=== PATIENT | female | born 1945 | race Caucasian/White ===

== ENCOUNTER 2016-09-11 13:11 | Observation (INO) | payer MEDICARE, OTHER ==
[2016-09-11] MEDS ORDERED: cloNIDine HCL 0.1 MG TABLET PO ONE ×2 (13:35→14:57)
--- NOTE | 2016-09-11 13:44 | CT REPORT ---
HISTORY: Stroke, spotty vision and left-sided deficits COMPARISON: None. TECHNIQUE: Axial non-contrast images obtained from skull vertex through foramen magnum. Dose reduction technique was utilized. FINDINGS: There is mild diffuse atrophy. Ventricular size is normal. Mild patchy chronic white matter changes n oted. There is no subdural or epidural collection, midline shift or mass effect. No evidence for acut e infarction. Visualized paranasal sinuses are clear. Skull is intact. IMPRESSION: Mild patchy chronic white matter change. No evidence for acute hemorrhage or infarction. Report called to Dr. Randhawa. Final Electronic Signature: This report was electronically signed by Álvaro North MD on 09/11/2016 1 :42 PM. loretta /
[2016-09-11 13:45] LABS: BASOPHILS 0.5 % (0.0-2.0); EOSINOPHILS 6.2 % (0.0-6.0); EOSINOPHILS# 0.3 X 10^3uL (0.0-0.4); HEMATOCRIT 42.2 % (36.0-48.0); HEMOGLOBIN 14.5 g/dL (12.0-16.0); LYMPHOCYTES 36.3 % (20.0-40.0); MEAN CORPUS. HGB CONCENTRATION 34.4 g/dL (32.0-36.0); MEAN PLATELET VOLUME 7.7 fL (7.4-10.4); MONOCYTES 6.8 % (2.0-10.0); MONOCYTES# 0.4 X 10^3uL (0.2-1.0); NEUTROPHILS 50.2 % (54.0-75.0); NEUTROPHILS# 2.8 X 10^3uL (2.6-6.7); PLATELET COUNT 271 X 10^3uL (130-440); RED BLOOD COUNT 4.85 X 10^6uL (4.20-6.10); RED CELL DISTRIBUTION WIDTH 12.5 % (11.5-14.5); WHITE BLOOD COUNT 5.5 X 10^3uL (3.9-10.7)
[2016-09-11 13:55] LABS: BLOOD UREA NITROGEN 17 mg/dL (7-17); CALCIUM 9.3 mg/dL (8.4-10.2); CHLORIDE 106 mmol/L (98-107); EST GLOMERULAR FILTRATION RATE > 60 mL/min; GLUCOSE 98 mg/dL (70-100); POTASSIUM 3.6 mmol/L (3.5-5.1); SODIUM 142 mmol/L (137-145)
[2016-09-11 14:07] LABS: TROPONIN I < 0.012 ng/mL (0.00-0.034)
--- NOTE | 2016-09-11 14:39 | MRI REPORT ---
HISTORY: Evaluate for stroke, left facial numbness COMPARISON: CT scan from earlier today TECHNIQUE: Multiplanar multi sequential imaging of the brain obtained without IV gadolinium. FINDINGS: Diffusion imaging shows no evidence of acute infarction. As noted on the head CT, there is mild diffu se atrophy, and mild subcortical and periventricular chronic white matter change. No hydrocephalus. N o subdural or epidural collection. No midline shift or mass effect. The major intracranial vessels, a nd dural venous sinuses appear patent. Paranasal sinuses and mastoid air cells are clear. Midline str uctures are normal. IMPRESSION: No evidence for acute infarction. Mild diffuse atrophy and mild patchy subcortical and periventricular white matter change. Final Electronic Signature: This report was electronically signed by Álvaro North MD on 09/11/2016 2 :37 PM. loretta /
[2016-09-11] MEDS ORDERED: MAG-AL PLUS XS SUSP 30 ML UDC PO PRN (15:17)
[2016-09-11] MEDS ORDERED: ACETAMINOPHEN 325 MG TABLET PO PRN (15:17)
[2016-09-11] MEDS ORDERED: HOME MEDICATION LIST NEEDED 1 EA EACH MC ONE (15:17)
[2016-09-11 15:19] LABS: URINE MUCUS NONE SEEN (Up to 25%); URINE RBC NONE SEEN (0-5/hpf); URINE WBC NONE SEEN (0-4/hpf)
[2016-09-11] MEDS ORDERED: ONDANSETRON ODT 4 MG TAB.RAPDIS PO PRN (15:20)
[2016-09-11 15:27] LABS: URINE APPEARANCE CLEAR; URINE COLOR YELLOW
[2016-09-11 15:28] LABS: URINE BACTERIA <10 ORGANISMS/hpf (<10/hpf); URINE BILIRUBIN NEGATIVE (NEGATIVE); URINE BLOOD NEGATIVE (NEGATIVE); URINE GLUCOSE NORMAL (NEGATIVE); URINE KETONE NEGATIVE (NEGATIVE); URINE LEUKOCYTE ESTERASE TRACE (NEGATIVE); URINE NITRITE NEGATIVE (NEGATIVE); URINE PROTEIN NEGATIVE (NEG - TRACE); URINE SPECIFIC GRAVITY 1.015 (0.001-1.035); URINE SQUAMOUS EPITHELIAL CELL 0-5/hpf (<= 15/hpf); URINE UROBILINOGEN 0.2mg/dL (Normal) (NEG-1mg/dL)
--- NOTE | 2016-09-11 15:45 | ER PHYSICIAN DOCUMENTATION ---
Physician Documentation [facility] Name:Katerina Aranda Age:71 yrs Sex:Female :1945 Arrival Date:09/11/2016 Time:13:11 BedTrauma-C Private MD: Gautam Pelaez Disposition: 09/11 15:14 Critical Care: not applicable. cd 15:20 Chart complete. cd Disposition: 09/11/16 15:16 Admit ordered for Zeenat Woo. Preliminary diagnosis are Transient Ischemic Attack (TIA), Hypertensive Emergency - / Urgency with paroxysmal Paresthesias. - Bed requested for Medical/Surgical. - Condition is Good. - Problem is new. - Symptoms are resolved. 23 HR OBS Yes HPI: 13:15 This 71 yrs old Female presents to ER via Private Vehicle with complaints of cd Episodes of Tingling down the left side of her body. 13:15 The patient's problem is reported as paresthesias, in left upper extremity, in left cd lower extremity. Onset: The symptom(s)/episode began/occurred acutely, at 11:30. Duration: The episodes are intermittent, The patient has had two episodes FRONT COUNTER ATTENDANT, each lasting 2 minutes. She denies any symptoms now other than a mild headache. She reports she has no history of CVA's, TIA's, Atrial Fib, Carotid disease, Cancer or ICH in the past. She does report a history of HTN and states that she is on Amlodipine and Lisinopril. She reports she has not taken her meds this morning. . Context: the episode(s) was witnessed, by family, , symptoms became apparent at 11:30. occurred at home, occurred while the patient was at rest, Possible contributing factors include: History of HTN, reports she did not take her meds this morning. Associated signs and symptoms: Pertinent positives: blurred vision, headache, tingling, Pertinent negatives: abdominal pain, chest pain, confusion, diaphoresis, dizziness, lightheadedness, numbness, palpitations, seizure, shortness of breath, vomiting, weakness. Severity of symptoms: At their worst the symptoms were mild in the emergency department the symptoms have resolved. Patient's baseline: Neuro: alert and fully oriented, Motor: no deficits, Ambulation: walks without assistance, Speech: normal. The patient has not experienced similar symptoms in the past. Historical: - Allergies: No known drug Allergies; - Home Meds: 1. amlodipine oral 2. lisinopril Oral - PMHx: Hypertension; - PSHx: Appendectomy; Hysterectomy; - Tetanus: > 10 years will f/u with PCP. - Ebola Screening: : Patient denies exposure to infectious person. Patient denies travel to an Ebola-affected area in the 21 days before illness onset. . - Social history: Smoking status: Patient states was never smoker of tobacco. Patient/guardian denies using alcohol, marijuana. ROS: 13:20 ENT: Negative for injury, pain, epistaxis and discharge. cd Neck: Negative for injury, pain, stiffness and swelling. Cardiovascular: Negative for chest pain, palpitations, edema and pleuritic pain. Respiratory: Negative for shortness of breath, dyspnea on exertion, cough, sputum production, wheezing, hemoptysis and pleuritic chest pain. Abdomen/GI: Negative for abdominal pain, nausea, vomiting, diarrhea, constipation, distension, melena, hematochezia and hematemesis. Back: Negative for injury, pain or muscle spasms. : Negative for injury, bleeding, discharge, dysuria, frequency, urgency and swelling. MS/Extremity: Negative for injury, deformity, edema, calf tenderness, pain or coldness. 13:20 Skin: Negative for injury, rash, itching and discoloration. cd 13:20 Constitutional: Negative for chills, fever, poor PO intake. 13:20 Eyes: Positive for visual disturbance, which is now gone. 13:20 Neuro: Positive for tingling, of the left arm and left leg, Negative for altered mental status, dizziness, loss of consciousness, numbness, seizure activity, speech changes, syncope, weakness. 13:20 All other systems are negative. Exam: Head/Face: Normocephalic, atraumatic. Eyes: Pupils equal round and reactive to light, extra-ocular motions intact. Lids and lashes normal. Conjunctiva and sclera are non-icteric and not injected. Cornea within normal limits. Periorbital areas with no swelling, redness, or edema. ENT: Nares patent. No nasal discharge, no septal abnormalities noted. Tympanic membranes are normal and external auditory canals are clear. Oropharynx with no redness, swelling, or masses, exudates, or evidence of obstruction, uvula midline. Mucous membranes moist. Neck: Trachea midline, no thyromegaly or masses palpated, and no cervical lymphadenopathy. Supple, full range of motion without nuchal rigidity, or vertebral point tenderness. No Meningismus. Chest/axilla: Normal chest wall appearance and motion. Nontender with no deformity. No lesions are appreciated. Cardiovascular: Regular rate and rhythm with a normal S1 and S2. No gallops, murmurs, or rubs. Normal PMI, no JVD. No pulse deficits. Respiratory: Lungs have equal breath sounds bilaterally, clear to auscultation and percussion. No rales, rhonchi or wheezes noted. No increased work of breathing, no retractions or nasal flaring. Abdomen/GI: Soft, non-tender, with normal bowel sounds. No distension or tympany. No guarding or rebound. No evidence of tenderness throughout. Back: No spinal tenderness. No costovertebral tenderness. Full range of motion. Skin: Warm, dry with normal turgor. Normal color with no rashes, no lesions, and no evidence of cellulitis. MS/ Extremity: Pulses equal, no cyanosis. Neurovascular intact. Full, normal range of motion. 13:45 Neuro: Awake and alert, GCS 15, oriented to person, place, time, and situation. cd Cranial nerves II-XII grossly intact. Motor strength 5/5 in all extremities. Sensory grossly intact. Cerebellar exam normal. Normal gait. 13:45 Constitutional: The patient appears alert, awake, non-diaphoretic, non-toxic, well developed, well nourished, anxious. 13:45 Neuro: Orientation: is normal, to person, place & time. Mentation: is normal, Memory: is normal, Cranial nerves: CN II- XII are normal as tested, Cerebellar function: is grossly normal, Motor: moves all fours, Sensation: is normal, Gait: is steady. Vital Signs: 13:26 BP 194 / 96; Pulse 74; Resp 18; Temp 98.1; Pulse Ox 94% on R/A; Pain 2/10; st 13:32 BP 196 / 88 (auto/); st 13:36 Pulse 74 MON; Resp 17; Pulse Ox 93% ; st 13:51 Pulse 78 MON; Resp 23; st 14:40 BP 202 / 88 (auto/); st 15:00 BP 180 / 101 (auto/); st 15:01 Pulse Ox 94% ; st 15:10 BP 187 / 98 (auto/); st 15:11 Pulse 80; Pulse Ox 94% ; st 15:30 BP 181 / 90 (auto/); st 15:31 Pulse 70; Pulse Ox 95% ; st NIH Stroke Scale Scores: 13:41 NIHSS Score: 0 st [place] Coma Score: 13:45 Eye Response: spontaneous(4). Verbal Response: oriented(5). Motor Response: obeys cd commands(6). Total: 15. MDM: 13:12 ECG:. cd 13:20 Data interpreted: bus driver/monitor: rate is 70 beats/min, rhythm is normal sinus rhythm, cd regular, with no ectopy, Interpretation: normal rate, normal rhythm, Pulse oximetry: on room air is 95 %. Interpretation: normal. 13:28 Patient medically screened. cd 13:45 Differential diagnosis: CVA, TIA, metabolic disorder, Hypertensive Emergency / Urgency. cd 15:15 Neurological re-evaluation: normal neurological exam including cranial nerves, cd orientation, mentation, motor and sensory exam, cerebellar testing, GCS normal, and normal gait. 15:20 Counseling: I had a detailed discussion with the patient and/or guardian regarding: the cd historical points, exam findings, and any diagnostic results supporting the discharge/admit diagnosis, lab results, radiology results, the need for further work-up and treatment in the hospital, risk of leaving the Emergency Department. Physician consultation: Zeenat Woo MD was called at 15:00, was contacted at 15:05, regarding admission, to telemetry, consult, patient's condition, need to come to ED to see patient, need to evaluate the patient as soon as possible, and will see patient in inpatient room, shortly, later today. Admission orders: after a detailed discussion of the patient's condition and case, the admit orders are written by me. 15:30 Data reviewed: vital signs, nurses notes, old medical records, lab test result(s), cd radiologic studies, CT scan, MRI, and as a result, I will admit patient, initiate a consult, from a Internal Medicine Physician, Dr. Zeenat Woo. 09/11 13:51 Order name: CBC AUTO DIF, MDIF/RMOR IF IND; Complete Time: 15:08 EDMS 09/11 15:07 Interpretation: Normal. cd 09/11 13:58 Order name: PROTIME/INR; Complete Time: 15:08 EDMS 09/11 15:07 Interpretation: Normal. cd 09/11 14:08 Order name: BASIC METABOLIC PANEL; Complete Time: 15:08 EDMS 09/11 15:07 Interpretation: Normal. cd 09/11 14:08 Order name: TROPONIN I; Complete Time: 15:08 EDMS 09/11 15:07 Interpretation: Normal. cd 09/11 15:29 Order name: UA W/ MICRO -CULTURE IF IND; Complete Time: 16:07 EDMS 09/11 16:06 Interpretation: Normal Except: URINE LEUKOCYTE ESTERASE TRACE. 09/11 19:08 Order name: TROPONIN I; Complete Time: 23:22 EDMS 09/11 23:22 Interpretation: Normal. cd 09/12 06:20 Order name: BASIC METABOLIC PANEL EDMS 09/12 07:45 Order name: URINE CULTURE EDMS 09/12 10:07 Order name: UA W/ MICRO -CULTURE IF IND EDMS 09/13 09:27 Order name: URINE CULTURE EDMS 09/11 13:46 Order name: CAT SCAN; HEAD W/O CON [id number]; Complete Time: 15:08 EDMS 09/11 16:07 Interpretation: Normal Except: Radiologist Report Reviewed during the patient's visit. 09/11 14:40 Order name: BRAIN W/O CONTRAST [id number]; Complete Time: 15:08 EDMS 09/11 15:08 Interpretation: Normal Except: Reviewed Radiologist's Reading at time of patient's cd visit. 09/11 13:29 Order name: 12-lead EKG; Complete Time: 13:32 cd 09/11 13:29 Order name: Continuous Cardiac Monitoring; Complete Time: 13:32 cd 09/11 13:29 Order name: I & O; Complete Time: 13:32 cd 09/11 13:29 Order name: NIH Stroke Scale; Complete Time: 13:41 cd 09/11 13:29 Order name: NPO; Complete Time: 13:32 cd 09/11 13:29 Order name: Pulse Ox Continuous; Complete Time: 13:32 cd 09/11 13:29 Order name: Elevate HOB 30 degrees; Complete Time: 13:32 cd 09/11 13:29 Order name: Iv Saline Lock; Complete Time: 13:32 cd EC:12 Rate is 69 beats/min. Rhythm is regular. VA interval is normal. QRS interval is normal. cd QT interval is normal. No Q waves. T waves are Normal. No ST changes noted. Clinical impression: Normal ECG and No evidence of ischemia. Interpreted by me. Dispensed Medications: 13:30 Drug: cloNIDine 0.1 mg; Route: PO; st 15:43 Follow up: Response: BP improving st 14:45 Drug: cloNIDine 0.1 mg; Route: PO; st 15:43 Follow up: Response: BP improving. st Point of Care Testing: Urine Dip: 15:13 pH: 7.0; ; Specific [place]: 1.015; Ketones: Negative; Glucose: Negative; Protein: st Negative; Leukocytes: Trace; Nitrite: Negative ; Blood: Negative; Bilirubin: Negative ; Urobilinogen: Normal NIH Stroke Scale - NIH Stroke Score Date: 09/11/2016 Time: 13:41 Total Score = 0 1a. Level of Consciousness (LOC) - 0(Alert) 1b. Level of Consciousness (LOC) (Year & Age) - 0(Both) 1c. LOC Commands (Open & Closes Eyes/Home Care Associate) - 0(Both) 2. Best Gaze (Lateral Gaze Paresis) - 0(Normal) 3. Visual Field Loss - 0(No visual loss) 4. Facial Palsy - 0(Normal) 5a. Left Arm: Motor (10-second hold) - 0(No drift) 5b. Right Arm: Motor (10-second hold) - 0(No drift) 6a. Left Leg: Motor (5-second hold ? always test supine) - 0(No drift) 6b. Right Leg: Motor (5-second hold ? always test supine) - 0(No drift) 7. Limb Ataxia (finger/nose & heel/rice ? test with eyes open) - 0(Absent) 8. Sensory Loss (pinprick arms/legs/face) - 0(Normal) 9. Best Language: Aphasia (description/naming/reading) - 0(No aphasia) 10. Dysarthria (speech clarity ? read or repeat words) - 0(Normal) 11. Extinction and Inattention (visual/tactile/auditory/spatial/personal) - 0(No abnormality) Initials: st Signatures: Twombly, Summer, RN RN st Tomas, Gautam, MD MD cd
--- NOTE | 2016-09-11 15:45 | ER NURSING DOCUMENTATION ---
Nurse's Notes [facility] Name:Katerina Aranda Age:71 yrs Sex:Female :1945 Arrival Date:09/11/2016 Time:13:11 BedTrauma-C Private MD: Diagnosis:Transient Ischemic Attack (TIA);Hypertensive Emergency-/ Urgency with paroxysmal Paresthesias Presentation: 09/11 13:18 Presenting complaint: Patient states: pt has had two episodes of tingling down the st whole left side with some vision changes. the first one was about 45 min ago pt states they both lasted about 1 min. pt only symptom now is a mild headache. 13:18 Acuity: JE 2 st 13:20 Transition of care: patient was not received from another setting of care. st 13:20 Method Of Arrival: Private Vehicle st Triage Assessment: 13:24 General: Appears in no apparent distress, Behavior is cooperative. Pain: Complains of st pain in headache Pain currently is 2 out of 10 on a pain scale. EENT: Reports pt states she did have a blind spot when she was having symptoms but that has resolved. . Neuro: Level of Consciousness is awake, alert, Oriented to person, place, time, event, [employer] are equal bilaterally Moves all extremities. Speech is normal, Facial symmetry appears normal. Cardiovascular: Capillary refill < 3 seconds Heart tones present Pulses are palpable in right radial artery and left radial artery Rhythm is sinus rhythm. Respiratory: No deficits noted. GI: Reports pt states she has some nausea when she had symptoms but that has resolved. Musculoskeletal:. Historical: - Allergies: No known drug Allergies; - Home Meds: 1. amlodipine oral 2. lisinopril Oral - PMHx: Hypertension; - PSHx: Appendectomy; Hysterectomy; - Tetanus: > 10 years will f/u with PCP. - Ebola Screening: : Patient denies exposure to infectious person. Patient denies travel to an Ebola-affected area in the 21 days before illness onset. . - Social history: Smoking status: Patient states was never smoker of tobacco. Patient/guardian denies using alcohol, marijuana. Screenin:27 Infectious Disease Risk None. Abuse screen: Denies threats or abuse. Denies injuries st from another. Abuse screen: pt feels safe at home. Nutritional screening: No deficits noted. Assessment: 14:45 General: pt remains symptom free.. st Vital Signs: 13:26 BP 194 / 96; Pulse 74; Resp 18; Temp 98.1; Pulse Ox 94% on R/A; Pain 2/10; st 13:32 BP 196 / 88 (auto/); st 13:36 Pulse 74 MON; Resp 17; Pulse Ox 93% ; st 13:51 Pulse 78 MON; Resp 23; st 14:40 BP 202 / 88 (auto/); st 15:00 BP 180 / 101 (auto/); st 15:01 Pulse Ox 94% ; st 15:10 BP 187 / 98 (auto/); st 15:11 Pulse 80; Pulse Ox 94% ; st 15:30 BP 181 / 90 (auto/); st 15:31 Pulse 70; Pulse Ox 95% ; st [place] Coma Score: 13:45 Eye Response: spontaneous(4). Verbal Response: oriented(5). Motor Response: obeys cd commands(6). Total: 15. NIH Stroke Scale Scores: 13:41 NIHSS Score: 0 st ED Course: 13:12 Patient arrived in ED. lr3 13:12 EKG done per protocol. Performed by ED Staff. Shown to ED physician. st 13:18 Tavia Garcia, RN is Primary Nurse. st 13:[address] ms 13:[address] 13:21 Inserted peripheral IV: 20 gauge in right antecubital area and blood collected. lp 13:27 Gautam Tomsa MD is Attending Physician. cd 13:27 Valuables Remains with patient Patient has correct armband on for positive st identification. Placed in gown. Bed in low position. Call light in reach. software tools developer on. Pulse ox on. NIBP on. 13:48 Patient moved to MRI. dnn 15:14 Zeenat Woo MD is Admitting Physician. cd Administered Medications: 13:30 Drug: cloNIDine 0.1 mg; Route: PO; st 15:43 Follow up: Response: BP improving st 14:45 Drug: cloNIDine 0.1 mg; Route: PO; st 15:43 Follow up: Response: BP improving. st Point of Care Testing: Urine Dip: 15:13 pH: 7.0; ; Specific [place]: 1.015; Ketones: Negative; Glucose: Negative; Protein: st Negative; Leukocytes: Trace; Nitrite: Negative ; Blood: Negative; Bilirubin: Negative ; Urobilinogen: Normal Outcome: 15:16 Decision to Admit by Provider. cd 15:42 Admitted to Med/surg accompanied by nurse, via wheelchair. st 15:42 Condition: stable 15:42 Report given to Ana Lilia 15:42 Instructed on need to admit 15:44 Patient left the ED. NIH Stroke Scale - NIH Stroke Score Date: 09/11/2016 Time: 13:41 Total Score = 0 1a. Level of Consciousness (LOC) - 0(Alert) 1b. Level of Consciousness (LOC) (Year & Age) - 0(Both) 1c. LOC Commands (Open & Closes Eyes/Stock Puller) - 0(Both) 2. Best Gaze (Lateral Gaze Paresis) - 0(Normal) 3. Visual Field Loss - 0(No visual loss) 4. Facial Palsy - 0(Normal) 5a. Left Arm: Motor (10-second hold) - 0(No drift) 5b. Right Arm: Motor (10-second hold) - 0(No drift) 6a. Left Leg: Motor (5-second hold ? always test supine) - 0(No drift) 6b. Right Leg: Motor (5-second hold ? always test supine) - 0(No drift) 7. Limb Ataxia (finger/nose & heel/rice ? test with eyes open) - 0(Absent) 8. Sensory Loss (pinprick arms/legs/face) - 0(Normal) 9. Best Language: Aphasia (description/naming/reading) - 0(No aphasia) 10. Dysarthria (speech clarity ? read or repeat words) - 0(Normal) 11. Extinction and Inattention (visual/tactile/auditory/spatial/personal) - 0(No abnormality) Initials: st Signatures: Tavia Garcia, RN RN Radha Rodrigues, RN RN Gautam Duran MD MD cd Strickland, Mary ms Norman, David dnn Roach, Lelia lr3
[2016-09-11] MEDS: NORMAL SALINE 1,000 ML IV SCH (16:22)
[2016-09-11] MEDS ORDERED: NORMAL SALINE FLUSH 250 ML ONE (16:26)
[2016-09-11] MEDS: CLOPIDOGREL BISULFATE 75 MG TABLET PO SCH (16:51)
[2016-09-11] MEDS ORDERED: ALBUTEROL HFA 1 INH INHALER INHALATION PRN (18:12)
[2016-09-11] MEDS ORDERED: LISINOPRIL 20 MG TABLET PO SCH (18:15)
[2016-09-11] MEDS ORDERED: HYDROCHLOROTHIAZIDE 25 MG TABLET PO SCH (18:15)
[2016-09-11] MEDS ORDERED: AMLODIPINE BESYLATE 5 MG TABLET PO SCH (21:00)
[2016-09-12] MEDS: NORMAL SALINE 1,000 ML IV SCH (01:22)
--- NOTE | 2016-09-12 01:38 | HISTORY & PHYSICAL ---
DATE OF ADMISSION: 09/11/16 CHIEF COMPLAINT: Change in neurological status. HISTORY OF PRESENT ILLNESS: The patient is a 71-year-old female, honeymooning in [place] since Friday, who lives in the [facility] normally. She was in her normal state of health eating at a restaurant where she sat for about 1-1 /2 hours, but when she tried to get up noticed tingling in her whole left side, particularly her left upper extremity and her left lower extremity with some associated clumsiness and weakness feeling. In association with that she had loss of vision in a spot of the left eye. These events were very transient and she came to the emergency room where she did have another brief episode of tingling. In the emergency room CT of the head and MRI of the brain were both reports as negative. She was very hypertensive and had not taken her blood pressure medication this morning since she simply forgot. Her only risks for stroke are her age, and a family history of coronary artery disease in her mother who at age 72. The patient is currently resting comfortably and is overall feeling back to normal. She is somewhat anxious, naturally about the preceding events. ALLERGIES: None known. MEDICATIONS AT HOME Albuterol HFA inhaler as needed. Amlodipine besylate 5 mg at h.s. Aspirin 81 mg daily. Lisinopril hydrochlorothiazide 20-25 mg daily. PAST MEDICAL HISTORY 1. Mild intermittent asthma with use of a rescue inhaler only occasionally. 2. Hypertension which has been well controlled. PAST SURGICAL HISTORY 1. Appendectomy many years ago. 2. Hysterectomy and bilateral oophorectomy for fibroid tumor. SOCIAL HISTORY: She was previously and just remarried. She is a retired teacher. She very very rarely drinks alcohol. She does not use any drugs including marijuana and she is a nonsmoker. She has 2 grown children, a daughter and a son and 3 grandchildren. FAMILY HISTORY: Mother at 72 with an AR and it was thought that she may have had smaller ones prior to that. Father with metastatic prostate cancer. She has an older sister who is doing well and a younger brother also doing well. REVIEW OF SYSTEMS: She has had a slight headache which has resolved. Vision in the left eye changes as above. She has had a little dizziness at times. She has some chronic mild neck pain not worse. She has had no shortness of breath, chest pain, chest pressure or palpitations, arm pain, jaw pain. She denies any abdominal pain, melena, hematochezia, diarrhea, constipation. Denies any dysuria, hematuria. She has some slight weakness in the limbs and tingling as noted above. She has had no changes in gait otherwise. PHYSICAL EXAMINATION VITAL SIGNS: Initial pressure in the emergency room was 194/96 with a pulse of 70. She was afebrile, pulse oximetry on room air 94%. Current blood pressure after receiving medications 156/80 with a pulse of 72. GENERAL: The patient is alert and appears comfortable. Cranial nerves are intact. HEENT: Extraocular movements are intact. Pupils are equal, round and reactive to light. Sclera are anicteric. Oropharynx is moist without lesions. Tongue is midline. NECK: No jugular venous distention. No bruits. No adenopathy. No thyromegaly. LUNGS: Clear bilaterally. CARDIOVASCULAR: Regular rate and rhythm without murmurs, rubs or gallops noted. ABDOMEN: Soft, nontender. Bowel sounds are normoactive. No organomegaly. No masses. NEUROLOGIC: Well oriented. Cranial nerves are intact. Motor strength is 5/5. Deep tendon reflexes are 1+ and symmetrical. Toes are down going bilaterally. Gait was not tested but has been normal. Coordination, finger to nose is normal. The patient denies any visual defects at this time. LABORATORY DATA: CBC is normal. INR is 1. Chemistry is normal. Troponin is less than 0.012. EKG has not shown any ischemic changes. ASSESSMENT AND PLAN 1. Symptoms are concerning for TIA. The patient has risks in terms of family history and hypertension. It was felt by the emergency room that the patient may have simply had a hypertensive urgency with subsequent symptoms. We do not have the availability of carotid Doppler tomorrow, and I have ordered a CTA of the carotids are I am uncomfortable discharging this patient without imaging studies. She is being monitored on telemetry to look for any possibility of atrial fibrillation. She has been placed on Plavix by the emergency room already. She is having neurological checks per protocol. 2. Hypertension. Has been giving medications and is doing better and has resumed her normal medications. 3. DVT prophylaxis will be started with Lovenox. Hopefully the patient will be discharged with a negative CTA and negative telemetry tomorrow. MTDD
[2016-09-12 06:18] LABS: BLOOD UREA NITROGEN 13 mg/dL (7-17); CALCIUM 8.6 mg/dL (8.4-10.2); CHLORIDE 112 mmol/L (98-107); EST GLOMERULAR FILTRATION RATE > 60 mL/min; GLUCOSE 96 mg/dL (70-100); POTASSIUM 3.5 mmol/L (3.5-5.1); SODIUM 141 mmol/L (137-145)
[2016-09-12 06:24] VITALS: BP 157/82; PULSE 66; RESP 18; TEMP 97.6; O2SAT 94
[2016-09-12] MEDS: CLOPIDOGREL BISULFATE 75 MG TABLET PO SCH (09:34)
[2016-09-12 10:05] LABS: URINE APPEARANCE CLEAR; URINE COLOR YELLOW; URINE GLUCOSE NORMAL (NEGATIVE); URINE KETONE NEGATIVE (NEGATIVE); URINE LEUKOCYTE ESTERASE 25 WBC/uL (1+) (NEGATIVE); URINE MUCUS NONE SEEN (Up to 25%); URINE NITRITE NEGATIVE (NEGATIVE); URINE PROTEIN NEGATIVE (NEG - TRACE); URINE RBC NONE SEEN (0-5/hpf); URINE UROBILINOGEN 0.2mg/dL (Normal) (NEG-1mg/dL)
[2016-09-12 10:06] LABS: URINE BACTERIA NONE SEEN (<10/hpf); URINE BILIRUBIN NEGATIVE (NEGATIVE); URINE BLOOD NEGATIVE (NEGATIVE); URINE SPERM NONE SEEN; URINE SQUAMOUS EPITHELIAL CELL 0-5/hpf (<= 15/hpf); URINE WBC 0-4/hpf (0-4/hpf)
--- NOTE | 2016-09-12 10:12 | DC SUMMARY: IM Note ---
Discharge Summary: IM/Peds Provider: Date of Admission: 09/11/16 Admitting Provider: VIOLETA CARREON MD Attending Provider: VIOLETA CARREON MD Discharging Provider: VIOLETA CARREON MD Primary Care Provider: Discharge Date: 09/12/16 - Diagnosis (1) Transient ischemic attack Status: Acute Qualifiers: Transient cerebral ischemia type: carotid artery syndrome (hemispheric) Qualified Code(s): G45.1 - Carotid artery syndrome (hemispheric) (2) Essential hypertension Status: Chronic Hospital Course: Patient was admitted with a few minutes of tingling, numbness and weakness in both her left upper and lower extremity, as well as a loss of vision in a "spot " in her left eye. CT scan and MRI of the brain were negative. Carotid ultrasound and echocardiogram were not available, so CTA of the carotids was done, which was reported as negative. Patient had omitted to take her blood pressure medications on the morning of admission, and was markedly hypertensive , which was felt to be the likely cause of her symptoms. Patient was started on Clopidogrel, but had not even been on aspirin at home, so 81mg aspirin was substituted. She was monitored on telemetry, with a rule out TN protocol, because of her concerns about her mother's history of TN. There were no findings of concern. She was discharged to home with recommendations for Neurology appointment in [place], where she lives. She is advised to return to the ER with any recurrence or new problems. - Time Spent with Patient Total time spent providing and/or coordinating discharge services: Time with patient DS: Greater than 30 minutes Discharge - Patient/Caregiver Discharge Instructions Activity Level: As tolerated Diet: Cardiac Follow up: Other,PCP [ACTIVE (Staff Physician)] - 7 Days Overall discharge status: patient is back to baseline Home Medications: aspirin EC [Aspirin EC*] 81 mg PO DAILY #30 tab Disposition: HOME, SELF-CARE Discharge Summary Data - Medication History Medication History: Home Medications Albuterol Hfa [Proventil Inhaler*] 90 mcg INHALATION Q6H PRN 09/11/16 Amlodipine Besylate [Norvasc*] 5 mg PO HS 09/11/16 Lisinopril/Hydrochlorothiazide [Lisinopril-Hctz 20-25 mg Tab] 1 tab PO EVERY MORNING 09/11/16 Inpatient Medications 09/11/16 18:12 Albuterol Hfa [Proventil Hfa Inhaler] 1 inh INHALATION Q6H PRN 09/11/16 18:15 Hydrochlorothiazide [Hydrodiuril] 25 mg PO EVERY MORNING Lisinopril [Prinivil] 20 mg PO EVERY MORNING 09/11/16 21:00 Amlodipine Besylate [Norvasc] 5 mg PO HS 09/13/16 09:00 aspirin EC [Ecotrin 81 mg] 81 mg PO DAILY Procedures and tests throughout hospitalization: Completed Lab Orders 09/12/16 07:30 UA w/ M [UA W/ MICRO -CULTURE IF IND] [URINE] Routine Pending Orders 09/11/16 18:12 Albuterol Hfa [Proventil Hfa Inhaler] 1 inh INHALATION Q6H PRN 09/11/16 18:15 Hydrochlorothiazide [Hydrodiuril] 25 mg PO EVERY MORNING Lisinopril [Prinivil] 20 mg PO EVERY MORNING 09/11/16 21:00 Amlodipine Besylate [Norvasc] 5 mg PO HS 09/12/16 07:00 CTA;CAROTID BILAT 29273 [CT] Stat 09/12/16 09:28 URINE CULTURE [RM] Routine 09/13/16 09:00 aspirin EC [Ecotrin 81 mg] 81 mg PO DAILY Labs on day of discharge: Labs from last 24 hours 09/12/16 09/12/16 09/11/16 07:30 05:40 18:05 Sodium 141 Potassium 3.5 Chloride 112 H Carbon Dioxide 23 BUN 13 Creatinine 0.7 GFR Calculation > 60 Glucose 96 Calcium 8.6 Troponin I < 0.012 Urine Color Yellow Urine Appearance Clear Urine pH 6.0 Ur Specific [place] 1.020 Urine Protein Negative Urine Ketones Negative Urine Blood Negative Urine Nitrate Negative Urine Bilirubin Negative Urine Urobilinogen 0.2mg/dl (normal) Ur Leukocyte Esterase 25 wbc/ul (1+) A Urine RBC None seen Urine WBC 0-4/hpf Ur Squamous Epith Cells 0-5/hpf Urine Bacteria None seen Urine Mucus None seen Urine Sperm None seen Urine Glucose Normal IM: Discharge Physical Exam - I&O/Vital Signs I&O: Intake & Output 09/11/16 09/12/16 09/12/16 21:59 05:59 13:59 Intake Total 320 1360 Output Total 275 225 Balance 45 1135 Weight 60.781 kg 61.5 kg Intake: IV 1160 Right Antecubital 1160 Oral 320 200 Output: Urine 275 225 Other: Urine Appearance Clear Clear Clear Urine Color Yellow Yellow Yellow Voiding Method Toilet Toilet Toilet Vital Signs: Last Vital Signs Temp 36.4 C 09/12/16 06:22 Pulse 66 09/12/16 06:22 Resp 18 09/12/16 09:00 BP 157/82 09/12/16 06:22 Pulse Ox 94 09/12/16 09:00 Oxygen Delivery Method Room Air - Constitutional General appearance: Present: average body habitus - Head Head exam: Present: normal inspection - Eye Eye exam: Present: conjunctival injection, EOMI, scleral icterus Pupils: Present: PERRL - ENT ENT exam: Present: mucous membranes moist - Neck Neck exam: Present: full ROM - Respiratory Respiratory exam: Present: CTAB. Absent: chest wall tenderness - Cardiovascular Cardiovascular exam: Present: RRR - GI/Abdominal GI/Abdominal exam: Present: normal bowel sounds, soft. Absent: tenderness - Extremities Exam Extremities exam: Absent: calf tenderness, edema, tenderness - Psychiatric Psychiatric exam: Present: normal affect - Allied Health Notes Allied health notes reviewed: nursing
--- NOTE | 2016-09-24 11:53 | CT REPORT ---
HISTORY: TIA, facial numbness, right arm and leg symptoms COMPARISON: Head CT, MRI brain from yesterday TECHNIQUE: This examination was performed using automated exposure control, adjustment of mA or kV according to patient size, and/or use of iterative reconstruction technique. Axial arterial phase postcontrast images of the head obtained from the aortic arch through [place], multiplanar and 3-D reformat images are evaluated. 100cc Isovue 370 contrast. FINDINGS: CTA neck: Aortic arch, and origin of the great vessels are within normal limits. The right common, bulb, and internal carotids appear within normal limits except for very minimal calcified plaque in the bulb region. No significant stenosis. The right vertebral is unremarkable. The left common, bulb and internal carotids appear normal. The left vertebral is unremarkable. The lung apices are clear. Soft tissues of the neck are within normal limits. There is normal alignment to the cervical spine except for minimal anterior subluxation of C3 on 4. There is moderate to severe degenerative change at C4-5 and C5-6 and C6-7. CTA HEAD: Distal vertebral, and basilar arteries appear normal. The superior cerebellar, and posterior cerebral vessels appear normal. Tiny posterior communicators are evident bilaterally. The distal internal carotid arteries, and major branches of the anterior and middle cerebral vessels appear normal. No aneurysm, stenosis , or occlusion. No abnormal enhancement. The visualized major dural venous sinuses are patent. IMPRESSION: Unremarkable CTA head and neck. No aneurysm, stenosis, occlusion or dissection. Significant degenerative change within the cervical spine from C4 through C7. Note: All measured carotid stenoses reference the distal internal carotid artery. Final Electronic Signature: This report was electronically signed by Álvaro North MD on 09/12/2016 10:41 AM. [email or web address] / [email or web address]
== END 2016-09-12 10:44 | disposition home or self-care (01) ==
LOC: ER 13:11 → IN 15:47
PROVIDERS: ADMIT Internal Medicine; ATTEND Internal Medicine
DX: G45.8 Other transient cerebral ischemic attacks and related syndromes (principal); J45.20 Mild intermittent asthma, uncomplicated; I10 Essential (primary) hypertension; Z79.899 Other long term (current) drug therapy
CPT/HCPCS: 36415; 70450; 70498; 70551; 80048; 81001; 84484; 85025; 85610; 87077; 87086; 87186; 93005; 93010; 93041; 96360; 96361; 99217; 99219; 99285; G0378; J7030